=== PATIENT | female | born 1990 | race Caucasian/White ===

== ENCOUNTER 2016-06-09 13:48 | Inpatient (IN) | payer SELFPAY ==
[2016-06-09 13:49] VITALS: BMI 30.7
[2016-06-09 16:27] LABS: AUTOMATED BASOPHIL 0.5 % (0-2); AUTOMATED LYMPH 33.3 % (17-44); AUTOMATED MONOCYTE 5.8 % (3-10); AUTOMATED NEUTROPHIL 59.4 % (45-76); MPV 10.3 fL (7.4-10.4)
[2016-06-09 16:50] LABS: BLOOD UREA NITROGEN 10 MG/DL (7-17); CALCIUM 9.2 MG/DL (8.4-10.2); CALCULATED OSMOLALITY 270 MOs/Kg (270-290); CHLORIDE 106 mEq/L (98-107); GLUCOSE 96 MG/DL (70-99); SODIUM LEVEL 141 mEq/L (137-146); TOTAL PROTEIN 8.7 G/DL (6.3-8.2)
[2016-06-09 18:29] LABS: LEUKOCYTES/URINE NEG (NEGATIVE); NITRITE/URINE NEG (NEGATIVE); URINE OCCULT BLOOD 2+ (NEG/TRACE)
[2016-06-09] MEDS ORDERED: NS 1,000 ML IV ONE (20:11)
[2016-06-09] MEDS ORDERED: ONDANSETRON HCL 4 MG/2 ML VIAL IV ONE (20:11)
[2016-06-09] MEDS ORDERED: MORPHINE 4 MG/ML INJECTION IV ONE (20:11)
[2016-06-09] MEDS ORDERED: Pharmacy Review for Metformin - IV Contrast Given SCH (21:00)
[2016-06-09] MEDS ORDERED: HYDROmorphone 1 MG INJECTION IV ONE (21:26)
--- NOTE | 2016-06-09 21:38 | DIRPT ---
CLINICAL DATA: 25-year-old female with severe epigastric pain for 1 week. Cholelithiasis. Initial encounter. EXAM: CT ABDOMEN AND PELVIS WITH CONTRAST TECHNIQUE: Multidetector CT imaging of the abdomen and pelvis was performed using the standard protocol following bolus administration of intravenous contrast. CONTRAST: 100 L Isovue 370. COMPARISON: Chest abdomen and pelvis CT 09/11/2015 FINDINGS: Improved lung volumes and basilar ventilation today. Negative lung bases. No pericardial or pleural effusion. Scoliosis. Chronic L5 pars fractures with trace anterolisthesis. Chronic S5 sacral fracture with mild anterior displacement. Chronic left iliac wing fracture with callus. No acute osseous abnormality identified. No pelvic free fluid. Uterus and adnexa within normal limits. Decompressed rectum. Mildly distended but otherwise negative urinary bladder. Redundant but otherwise negative sigmoid colon. Negative left colon, decompressed. Negative transverse colon and right colon aside from retained stool. Normal appendix (series 3, image 49). Negative terminal ileum. No dilated small bowel. Largely decompressed stomach and duodenum. The gallbladder does appear distended today, projecting caudal into the abdomen from the gallbladder fossa. There may be mild gallbladder wall thickening (coronal image 75), but there is no overt pericholecystic fat stranding. However, there is new mild hyper enhancement of the liver parenchyma adjacent to the gallbladder fossa (series 3, image 31). Liver otherwise within normal limits. No intra or extrahepatic biliary ductal enlargement. No abdominal free fluid. Spleen, pancreas, adrenal glands, and kidneys are within normal limits. Portal venous system is patent. Major arterial structures appear normal. No lymphadenopathy. IMPRESSION: 1. Distended gallbladder with mild wall thickening and abnormal enhancement of adjacent liver strongly suggesting Acute Cholecystitis. Right upper quadrant ultrasound should be confirmatory if there is doubt. 2. No other acute or inflammatory process in the abdomen or pelvis. Mildly distended urinary bladder. 3. Chronic pelvic fractures, L5 pars fractures, and scoliosis. Electronically Signed By: Andrew Plascencia M.D. On: 06/09/2016 21:35
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
[2016-06-09] MEDS ORDERED: ACETAMINOPHEN 325 MG/TAB TABLET PO PRN (22:34)
[2016-06-09] MEDS ORDERED: ACETAMINOPHEN 650 MG SUPP PR PRN (22:35)
[2016-06-09] MEDS ORDERED: MORPHINE 2 MG/ML INJECTION IV PRN ×3 (22:36→22:37)
[2016-06-09] MEDS: NS 1,000 ML IV SCH (22:46)
[2016-06-09] MEDS: CEFOXITIN 1 GM in D5W 100 ML IV SCH (22:46)
[2016-06-09] MEDS: MORPHINE 2 MG/ML INJECTION IV PRN (22:54)
[2016-06-09] MEDS: PROMETHAZINE 25 MG/ML VIAL IV PRN (22:59)
[2016-06-09] MEDS ORDERED: Vaccine Screening Complete SCH (23:00)
[2016-06-10] MEDS: NS 1,000 ML IV SCH ×3 (01:03→12:53)
[2016-06-10] MEDS: MORPHINE 2 MG/ML INJECTION IV PRN ×4 (01:06→11:01)
[2016-06-10] MEDS: CEFOXITIN 1 GM in D5W 100 ML IV SCH ×4 (03:57→21:04)
[2016-06-10] MEDS: ONDANSETRON HCL 4 MG/2 ML VIAL IV PRN ×2 (04:02→12:00)
[2016-06-10] MEDS: PROMETHAZINE 25 MG/ML VIAL IV PRN (06:32)
[2016-06-10] MEDS ORDERED: FLU VACCINE (Afluria) 0.5 ML DOSE IM ONE (08:00)
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
[2016-06-10] MEDS ORDERED: Pharmacy Discontinue All Previous Acetaminophen Orders SCH (12:00)
[2016-06-10] MEDS ORDERED: Acetaminophen, Intravenous 1,000 MG/100 ML IVBOT IV ONE (12:00)
[2016-06-10] MEDS ORDERED: LORAZEPAM 2 MG/ML VIAL ONE (12:12)
[2016-06-10] MEDS: Famotidine 20 mg/50 ml RTU 20 MG/50 ML IVB IV SCH (15:04)
[2016-06-10] MEDS: HYDROmorphone 1 MG INJECTION IV PRN ×4 (15:15→22:36)
[2016-06-10] MEDS: Acetaminophen, Intravenous 1,000 MG/100 ML IVBOT IV SCH ×2 (18:51→22:43)
[2016-06-10] MEDS: LORAZEPAM 2 MG/ML VIAL IV PRN (18:59)
[2016-06-10] MEDS: OXYCODONE HCL 5 MG TABLET PO PRN (21:03)
[2016-06-11] MEDS: OXYCODONE HCL 5 MG TABLET PO PRN ×5 (00:28→22:46)
[2016-06-11] MEDS: LORAZEPAM 2 MG/ML VIAL IV PRN (00:30)
[2016-06-11] MEDS: Famotidine 20 mg/50 ml RTU 20 MG/50 ML IVB IV SCH ×2 (00:32→14:58)
[2016-06-11] MEDS: HYDROmorphone 1 MG INJECTION IV PRN ×4 (01:08→09:48)
[2016-06-11] MEDS: PROMETHAZINE 25 MG/ML VIAL IV PRN (02:54)
[2016-06-11] MEDS: Acetaminophen, Intravenous 1,000 MG/100 ML IVBOT IV SCH ×2 (05:42→12:10)
[2016-06-11] MEDS: NS 1,000 ML IV SCH ×2 (05:43→19:47)
[2016-06-11] MEDS: CEFOXITIN 1 GM in D5W 100 ML IV SCH ×3 (06:04→18:12)
[2016-06-11] MEDS ORDERED: FLU VACCINE (Afluria) 0.5 ML DOSE IM ONE (08:00)
[2016-06-11] MEDS ORDERED: SUCCINYLCHOLINE 20 MG/1 ML INJ 10 ML MDV IV ONE (10:00)
[2016-06-11] MEDS ORDERED: GLYCOPYRROLATE 1 MG VIAL IM ONE (10:00)
[2016-06-11] MEDS ORDERED: METOCLOPRAMIDE 10 MG/2 ML VIAL IV ONE (10:00)
[2016-06-11] MEDS ORDERED: FENTANYL 250 MCG/5 ML VIAL IV ONE (10:00)
[2016-06-11] MEDS ORDERED: LIDOCAINE 100 MG PFS IV ONE (10:00)
[2016-06-11] MEDS ORDERED: PROPOFOL 200 MG/20 ML VIAL IV ONE (10:00)
[2016-06-11] MEDS ORDERED: ROCURONIUM 50 MG/5 ML VIAL IV ONE (10:00)
[2016-06-11] MEDS ORDERED: NEOSTIGMINE 1 MG/1 ML (1:1000) INJ 10 ML MDV IM ONE (10:00)
[2016-06-11] MEDS ORDERED: MIDAZOLAM 2 MG/2 ML VIAL IV ONE (10:00)
[2016-06-11] MEDS ORDERED: DEXAMETHASONE 4 MG/ML VIAL IV ONE (10:00)
[2016-06-11] MEDS ORDERED: ONDANSETRON HCL 4 MG/2 ML VIAL IV ONE (10:00)
[2016-06-11] MEDS: ONDANSETRON HCL 4 MG/2 ML VIAL IV PRN (10:20)
[2016-06-11] MEDS ORDERED: BUPIVACAINE 0.25% 30 ML VIAL ONE (11:23)
[2016-06-11] MEDS ORDERED: ISOVUE-300 (61%) 50 ML ONE (11:23)
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
[2016-06-11] MEDS ORDERED: ONDANSETRON HCL 4 MG/2 ML VIAL IV PRN (11:50)
[2016-06-11] MEDS ORDERED: LABETALOL 20 MG/4 ML SYRINGE IV PRN (11:50)
[2016-06-11] MEDS ORDERED: HYDROmorphone 1 MG INJECTION IV PRN ×2 (11:50)
[2016-06-11] MEDS ORDERED: FENTANYL 100 MCG/2 ML VIAL IV PRN ×2 (11:50)
[2016-06-11] MEDS ORDERED: MEPERIDINE 25 MG/ML TUBEX IV PRN (11:50)
[2016-06-11] MEDS ORDERED: hydrALAZINE 20 MG/ML VIAL IV PRN (11:50)
[2016-06-11] MEDS ORDERED: ONDANSETRON HCL 4 MG ODT TAB PO PRN (11:50)
[2016-06-11] MEDS ORDERED: Pharmacy Review for Metformin - IV Contrast Given SCH (12:30)
--- NOTE | 2016-06-11 13:33 | HIMOPRPT ---
PROCEDURE: DATE OF PROCEDURE: 06/11/16 PREOPERATIVE DIAGNOSES: Cholecystitis and cholelithiasis. POSTOPERATIVE DIAGNOSES: Cholecystitis and cholelithiasis. PROCEDURE: Laparoscopic cholecystectomy with intraoperative cholangiogram. SURGEON: Caden Shaw MD Asistant: Ziggy Wallace MD ANESTHESIA: General. COMPLICATIONS: None. ESTIMATED BLOOD LOSS: <5cc OPERATIVE NOTE: The patient was placed supine on the operative table. After induction of general anesthesia and endotracheal intubation, the patient was prepped and draped in the usual fashion. Time-out was taken. The patient was re- identified and the procedure was verified, and was given pre-operative antibiotics. An infraumbilical incision was made and a 5-mm Optiview trocar was placed without difficulties. The abdomen was insufflated with CO2 until a pressure of 15 mm HG was achieved. The camera was introduced and we inspected the abdominal cavity. The liver was smooth without any nodularities or masses. At this point, we placed two 5 mm ports in the right upper quadrant under direct visualization and an 11-mm port in the epigastric region. We were able to place a grasper on the dome, the other on the infundibulum of the gallbladder. The [place] of [place] was dissected using lateral retraction of the infundibulum thus exposing this critical angle between the cystic duct and CBD. The peritoneal attachment around the infundibulum of the gallbladder to the liver was dissected free using electrocautery. Thus giving a partial retrograde dissection. This allowed the visualization of the cystic duct and artery as they entered the gallbladder. Having developed this Critical View of Safety at the triangle of [place] we proceeded with our cholangiogram. A Matute clamp was placed across the body of the gallbladder, the tip of the catheter was inserted into the infundibulum. We then were able to flush this. Using the C -arm fluoroscopy unit, we performed a cholangiogram. In real time, we saw the passage of contrast throughout the biliary tree, common hepatic, common bile duct, and emptying readily into the duodenum. No filling defects were noted. This was a normal cholangiogram. At this point, the catheter was removed. Clips were placed on the cystic duct and artery and these structures were divided. A PDS loop was placed around the cystic duct stump. We then removed the gallbladder off the liver bed using electrocautery. The liver bed remained completely hemostatic. We removed the gallbladder and placed it into a laparoscopic retrieval bag. We irrigated the operative field and suctioned out the irrigation. We then removed the ports allowing the CO2 to escape. The patient then had the large port site closed at the level of the fascia using #0- Vicryl sutures. The wounds were all irrigated and infiltrated with 0.25% Marcaine. The skin edges were approximated using 4-0 Monocryl and Dermabond. The patient tolerated this well. Sponge, needle, and instrument counts were correct.
--- NOTE | 2016-06-11 16:35 | DIRPT ---
CLINICAL DATA: Cholecystitis. EXAM: INTRAOPERATIVE CHOLANGIOGRAM TECHNIQUE: Cholangiographic images from the C-arm fluoroscopic device were submitted for interpretation post-operatively. Please see the procedural report for the amount of contrast and the fluoroscopy time utilized. COMPARISON: CT 06/09/2016 FINDINGS: Three intraoperative images demonstrate contrast opacification of the extrahepatic biliary system and duodenum. Minor filling of the intrahepatic ducts. There is a lucency overlying the common hepatic duct which is probably related to overlying structures. IMPRESSION: Common bile duct is patent without evidence for an obstructing stone or lesion. Electronically Signed By: Mario Gibbons M.D. On: 06/11/2016 16:32
--- NOTE | 2016-06-11 17:53 | SC.ANESPOS ---
Post-Anesthesia Note LOC: Fully Awake Post-Anesthesia Assessment: Awake, Returned to Baseline, Hemodynamically Stable , Pain Control Adequate Phase I & II Recovery Complete: Yes Apparent Anesthesia Complication: No : N PACU Discharge Time: 12:12 - Vital Signs Blood Pressure: 126/75 Pulse: 92 Resp Rate: 16 O2 Sat: 100 Temp: 98.5 F - Comments Anesthesia Discharge Time Report Time 12:12
[2016-06-11] MEDS: ACETAMINOPHEN 325 MG/TAB TABLET PO SCH (18:11)
[2016-06-12] MEDS: CEFOXITIN 1 GM in D5W 100 ML IV SCH ×2 (00:27→05:37)
[2016-06-12] MEDS: HYDROmorphone 1 MG INJECTION IV PRN (00:33)
[2016-06-12] MEDS: OXYCODONE HCL 5 MG TABLET PO PRN ×2 (03:00→07:45)
[2016-06-12] MEDS: Famotidine 20 mg/50 ml RTU 20 MG/50 ML IVB IV SCH (03:00)
[2016-06-12] MEDS: NS 1,000 ML IV SCH (06:24)
[2016-06-12] MEDS: ACETAMINOPHEN 325 MG/TAB TABLET PO SCH (07:45)
[2016-06-12] MEDS ORDERED: FLU VACCINE (Afluria) 0.5 ML DOSE IM ONE (08:00)
[2016-06-12 10:18] VITALS: BP 110/58; PULSE 70; TEMP 98.2
--- NOTE | 2016-06-12 10:51 | PCM.DCS92 ---
- Final/Secondary Discharge Diagnosis (1) RUQ abdominal pain Resolved R10.11 - RIGHT UPPER QUADRANT PAIN Present on Admission: Yes (2) Epigastric abdominal pain Resolved R10.13 - EPIGASTRIC PAIN Present on Admission: Yes (3) Abnormal LFTs Resolved R79.89 - OTHER SPECIFIED ABNORMAL FINDINGS OF BLOOD CHEMISTRY Present on Admission: Yes (4) Anxiety Chronic F41.9 - ANXIETY DISORDER, UNSPECIFIED Present on Admission: Yes (5) Acute cholecystitis Resolved K81.0 - ACUTE CHOLECYSTITIS Present on Admission: Yes (6) Cholelithiases Resolved K80.20 - CALCULUS OF GALLBLADDER W/O CHOLECYSTITIS W/O OBSTRUCTION Present on Admission: Yes gallbladder with cholecystitis C acute C without biliary obstruction K80.00 - Calculus of gallbladder with acute cholecystitis without obstruction Discharge Disposition: Home Discharge Condition: Stable Cognitive Discharge Status: Unimpaired Fuctional Discharge Status: Independent Physician Follow up/Referrals: Monserrat Back MD [Primary Care Provider] - Two Weeks Caden Shaw MD [Staff Physician] - Two Weeks Home Medications/ New Prescriptions: No Action No Home Medications 0 NA DIR #0 info Diet at Discharge: Low Fat Activity: As Tolerated, No Heavy Lifting - DC Summary Notes Hospital Course Note:: Discharge summary on patient named PAO BAUER admitted to [facility] on 06/09/16 by Caden Shaw MD. Date of discharge is 06/12/16. Patient was admitted with cholecystitis and then had LC IOC She has done well. Will d/c home today. Will follow up in office in 2 weeks. - Physical Exam Vital Signs: Initial Vitals Temperature 98.4 F 06/09/16 14:14 Pulse Rate 70 06/09/16 14:14 Respiratory Rate 20 06/09/16 14:14 Blood Pressure 162/100 06/09/16 14:14 Pulse Oxygen Saturation 100 06/09/16 14:14 Constitutional: No apparent distress, Alert Oriented to: Time, Person, Place - HEENT Head: Normal Respiratory: Normal - CTA Cardiovascular: Normal - GI Palpation: Normal Tenderness: Mild, RUQ Cedeño's Sign: Negative
== END 2016-06-12 11:51 | disposition home or self-care (01) | DRG 419 ==
LOC: ED 13:48 → MPS3 21:50 → MASU 06-11 11:41
PROVIDERS: ADMIT Surgery; ATTEND Surgery
PROC: BF131ZZ Fluoroscopy of Gallbladder and Bile Ducts using Low Osmolar Contrast (ICD-10-PCS; 2016-06-11)
PROC: 0FT44ZZ Resection of Gallbladder, Percutaneous Endoscopic Approach (ICD-10-PCS; principal; 2016-06-11 10:50)
DX: K80.00 Calculus of gallbladder with acute cholecystitis without obstruction (principal); F41.9 Anxiety disorder, unspecified; Z28.21 Immunization not carried out because of patient refusal
CPT/HCPCS: 36415; 74177; 74300; 80053; 81001; 81025; 83690; 85025; 90656; 96361; 96374; 96375; 99284; 99406; A9698; J0131; J0330; J0694; J1100; J1170; J2001; J2060; J2250; J2270; J2405; J2550; J2710; J2765; J3010; J3490; J7060; S0020; S0028